=== PATIENT | female | born 1980 | race American Indian/Alaskan Native ===

== ENCOUNTER 2017-02-15 08:20 | Inpatient (IN) | payer OTHER ==
[2017-02-15] MEDS ORDERED: MINERAL OIL PO PRN ×2 (09:50→10:30)
[2017-02-15] MEDS ORDERED: ePHEDrine SULFATE IV PRN ×2 (09:50→11:00)
[2017-02-15] MEDS ORDERED: BRETHINE SUB-Q PRN ×2 (09:50→11:00)
[2017-02-15] MEDS ORDERED: BRETHINE IVP PRN ×2 (09:50→11:00)
[2017-02-15] MEDS ORDERED: LACTATED RINGERS 1,000 ML IV SCH ×2 (10:00→10:30)
[2017-02-15 10:14] LABS: Hematocrit 35.4 % (30.3-42.9); Hemoglobin 11.7 gm/dl (10.1-14.3); Mean Corpuscular HGB Conc 33 % (30-34); Mean Corpuscular Volume 76 fl (79-97); Red Blood Count 4.63 M/mm3 (3.65-5.03); White Blood Count 9.2 K/mm3 (4.5-11.0)
[2017-02-15 10:16] LABS: Mean Corpuscular Hemoglobin 25 pg (28-32)
[2017-02-15] MEDS ORDERED: STADOL IV PRN (10:30)
[2017-02-15] MEDS ORDERED: POLYCILLIN/NS 2 GM/100 ML 2 GM/100 ML BAG IV ONE (10:30)
[2017-02-15] MEDS ORDERED: SUBLIMAZE IV PRN (10:30)
[2017-02-15] MEDS ORDERED: PITOCin/NS 20 UNIT/1000ML DRIP 20 UNITS/1,000 ML BAG IV SCH (10:30)
[2017-02-15] MEDS ORDERED: PITOCin/NS 30 UNIT/500ML 30 UNITS/500 ML BAG IV SCH (10:30)
--- NOTE | 2017-02-15 10:32 | History and Physical Report ---
History of Present Illness Date of examination: 02/15/17 Date of admission: 02/15/17 09:28 Chief complaint: I'm in labor History of present illness: Patient is a 36 year old who presents with no care at approximately 39 weeks. She was given an EDC of 02/27/17 at [facility]. Past History Past Medical History: no pertinent history Social history: - Obstetrical History Expected Date of Delivery: 02/27/17 Actual Gestation: 38 Week(s) 2 Day(s) : 5 Para: 4 Number of Living Children: 4 Medications and Allergies Allergies Allergy/AdvReac Type Severity Reaction Status Date / Time No Known Allergies Allergy Verified 02/15/17 10:13 Home Medications Medication Instructions Recorded Confirmed Last Taken Type No Known Home Medications [No 02/15/17 02/15/17 Unknown History Reported Home Medications] Active Meds: Active Medications Butorphanol Tartrate (Stadol) 2 mg IV Q2H PRN PRN Reason: Pain , Severe (7-10) Ephedrine Sulfate (Ephedrine Sulfate) 10 mg IV Q2M PRN PRN Reason: Hypotension Stop: 02/16/17 10:59 Fentanyl (Sublimaze) 100 mcg IV Q2H PRN PRN Reason: Labor Pain Ampicillin Sodium (Polycillin/Ns 2 Gm/100 Ml) 2 gm in 100 mls @ 100 mls/hr IV ONCE ONE PRN Reason: Protocol Stop: 02/15/17 11:29 Lactated Ringer's (Lactated Ringers) 1,000 mls @ 125 mls/hr IV DIRECT LAUREEN Oxytocin/Sodium Chloride (Pitocin/Ns 20 Unit/1000ml Drip) 20 units in 1,000 mls @ 125 mls/hr IV DIRECT LAUREEN Ampicillin Sodium (Polycillin/Ns 1 Gm/50 Ml) 1 gm in 50 mls @ 100 mls/hr IV Q4H LAUREEN PRN Reason: Protocol Oxytocin/Sodium Chloride (Pitocin/Ns 30 Unit/500ml) 30 units in 500 mls @ 1 mls /hr IV TITR LAUREEN; 1 MILLIUNITS/MIN PRN Reason: Protocol Influenza Virus Vaccine Quadrival (Fluarix Quad [id number](36 Mos+)) 60 mcg IM .ONCE ONE Stop: 02/16/17 12:01 Lidocaine (Xylocaine 2%) 20 ml INFILTRATI ONCE ONE Stop: 02/15/17 11:01 Mineral Oil (Mineral Oil) 30 ml PO QHS PRN PRN Reason: Constipation Terbutaline Sulfate (Brethine) 0.25 mg SUB-Q ONCE PRN PRN Reason: Hyperstimulation/Hypertonicity Stop: 02/15/17 11:01 Terbutaline Sulfate (Brethine) 0.25 mg IVP ONCE PRN PRN Reason: Hyperstimulation/Hypertonicity Stop: 02/15/17 11:01 Review of Systems All systems: negative Genitourinary: leakage of fluid, contractions - Vital Signs Vital signs: Vital Signs Temp Resp 98.5 F 02/15/17 10:03 02/15/17 10:03 Temp Pulse Resp BP Pulse Ox 98.5 F 02/15/17 10:03 02/15/17 10:03 - Physical Exam Breasts: Cardiovascular: Regular rate, Normal S1, Normal S2 Lungs: Positive: Clear to auscultation, Normal air movement Abdomen: Positive: normal appearance, soft, normal bowel sounds. Negative: distention, tenderness Genitourinary (Female): Positive: normal external genitalia, normal perenium Vulva: both: normal Vagina: Positive: normal moisture. Negative: discharge Cervix: Negative: lesion, discharge Uterus: Positive: normal size, normal contour Adnexa: both: normal Anus/Rectum: Positive: normal perianal skin, heme negative. Negative: rectal mass, hemorrhoids Extremities: Positive: normal Deep Tendon Reflex Grade: Normal +2 - Obstetrical FHR: auscultation normal Cervical Dilatation: 5 Cervical Effacement Percentage: 80 Uterine Contraction Pattern: Regular Uterine Tone Measurement Phase: Contraction Uterine Contraction Intensity: Moderate Results Result Diagrams: 02/15/17 09:42 Abnormal lab results 02/15/17 Range/Units 09:42 MCV 76 L (79-97) fl MCH 25 L (28-32) pg All other labs normal. Assessment and Plan IUP at 39 weeks with no care in active labor. Admit to L&D. Monitor progress. Administer Ampicillin for GBS unknown status. Anticipate . Will draw full labs as patient has had no care.
[2017-02-15] MEDS ORDERED: XYLOCAINE 2% INFILTRATI ONE (11:00)
[2017-02-15 11:30] LABS: HIV-1 Antigen p24 Non React (Non React); HIVR-1/2 Ab Non React (Non React)
[2017-02-15 11:51] LABS: Platelet Count 117 K/mm3 (140-440)
--- NOTE | 2017-02-15 13:15 | Procedure Note ---
OB Delivery Note - Delivery Date of Delivery: 02/15/17 Surgeon: CHANTE CENTENO Estimated blood loss: 100cc - Vaginal Delivery presentation: vertex Delivery position: OA Intrapartum events: no care Delivery induction: none Delivery monitor: external FHT, external uterine Route of delivery: Delivery placenta: spontaneous Delivery cord: 3 umbilical vessels Episiotomy: none Delivery laceration: none Anesthesia: local Delivery comments: Viable male delivered over intact perineum. Nuchal cord easily reduced. Infant placed on maternal abdomen. Cord clamped and cut. - Infant A at 1 minute: 8 at 5 minutes: 9 Gender: Male (4520 grams 9 pounds 15 ounces)
[2017-02-15] MEDS ORDERED: POLYCILLIN/NS 1 GM/50 ML 1 GM/50 ML BAG IV SCH (14:00)
[2017-02-15] MEDS ORDERED: PHENERGAN PR PRN (14:25)
[2017-02-15] MEDS ORDERED: ZOFRAN IV PRN (14:25)
[2017-02-15] MEDS ORDERED: SODIUM CHLORIDE FLUSH SYRINGE 10 ML IV NR (14:25)
[2017-02-15] MEDS ORDERED: LANSINOH TP PRN (14:25)
[2017-02-15] MEDS ORDERED: BENADRYL PO PRN (14:25)
[2017-02-15] MEDS ORDERED: DULCOLAX PR PRN (14:25)
[2017-02-15] MEDS ORDERED: TYLENOL PO PRN (14:25)
[2017-02-15] MEDS ORDERED: TUCKS PAD TP PRN (14:25)
[2017-02-15] MEDS ORDERED: MILK OF MAGNESIA PO PRN (14:25)
[2017-02-15] MEDS ORDERED: DERMOPLAST TP PRN (14:25)
[2017-02-15] MEDS ORDERED: PHENERGAN PO PRN (14:25)
[2017-02-15] MEDS: MOTRIN PO SCH (18:17)
[2017-02-15] MEDS: COLACE PO SCH (21:35)
[2017-02-16 03:42] LABS: Hematocrit 37.7 % (30.3-42.9); Hemoglobin 11.1 gm/dl (10.1-14.3)
[2017-02-16] MEDS: NORCO 5/325 PO PRN ×2 (04:13→20:11)
[2017-02-16] MEDS ORDERED: BOOSTRIX IM ONE (06:00)
[2017-02-16] MEDS ORDERED: PRENATAL VITAMIN PO SCH (10:00)
[2017-02-16] MEDS ORDERED: FLUARIX QUAD 2016-2017(36 MOS+) IM ONE (12:00)
[2017-02-16] MEDS: MOTRIN PO SCH ×2 (12:10→18:29)
--- NOTE | 2017-02-16 17:34 | Progress Note ---
Assessment and Plan PPD 1 s/p . Doing well. Baby will need to stay until tomorrow due to unknown gbs status. Subjective - Subjective Date of service: 02/16/17 Interval history: Patient is a 36 year old who presents with no care at approximately 39 weeks. She was given an EDC of 02/27/17 at [facility], [place]. Patient reports: appetite normal, voiding normally, ambulating normally : doing well Objective - Vital Signs Latest vital signs: Vital Signs Temp Pulse Resp BP 02/16/17 08:30 98 F 68 18 98/60 02/16/17 04:13 18 02/16/17 00:19 98.1 F 67 18 99/52 02/15/17 21:00 99 F 67 20 97/59 Intake and Output 02/16/17 02/16/17 02/16/17 06:59 14:59 22:59 Intake Total 120 600 Balance 120 600 Intake: Oral 600 Intake, Free Water 120 Other: Total, Intake Amount 240 # Voids Void 1 1 - Exam Cardiovascular: Present: Regular rate, Normal S1, Normal S2 Lungs: Present: Clear to auscultation, Normal air movement Abdomen: Present: normal appearance, soft, normal bowel sounds Vulva: both: normal Uterus: Present: normal, firm, fundal height below umbilicus Extremities: Present: normal
[2017-02-17] MEDS: MOTRIN PO SCH ×4 (00:48→18:15)
[2017-02-17] MEDS: COLACE PO SCH (04:28)
[2017-02-17] MEDS ORDERED: BOOSTRIX IM ONE (06:00)
--- NOTE | 2017-02-17 13:01 | Progress Note ---
Assessment and Plan PPD 2 s/p . Doing well. Plan for discharge on today. Subjective - Subjective Date of service: 02/17/17 Interval history: Patient is a 36 year old who presents with no care at approximately 39 weeks. She was given an EDC of 02/27/17 at [facility]. Patient reports: appetite normal, voiding normally, pain well controlled, ambulating normally : doing well Objective - Vital Signs Latest vital signs: Vital Signs Temp Pulse Resp BP 02/17/17 08:40 98.2 F 68 20 110/62 02/16/17 23:25 97.9 F 59 L 18 100/56 Intake and Output 02/16/17 02/17/17 02/17/17 22:59 06:59 14:59 Intake Total 720 240 240 Balance 720 240 240 Intake: Oral 240 Intake, Free Water 720 240 Other: Total, Intake Amount 120 # Voids Void 2 1 1 # Bowel Movements 1 - Exam Breasts: Present: deferred Cardiovascular: Present: Regular rate, Normal S1, Normal S2 Lungs: Present: Clear to auscultation, Normal air movement Abdomen: Present: normal appearance, soft, normal bowel sounds Uterus: Present: normal, firm Extremities: Present: normal
--- NOTE | 2017-02-17 13:05 | Discharge Summary ---
Providers - Providers Date of Admission: 02/15/17 09:28 Date of discharge: 02/17/17 Attending physician: CHANTE CENTENO Primary care physician: MANAGER [facility] Hospitalization Reason for admission: active labor, other (no care) Delivery: Episiotomy: none Laceration: none complications: none Discharge diagnosis: IUP at term delivered baby: male Hospital course: unremarkable Condition at discharge: Good Disposition: DISCHARGED TO HOME OR SELFCARE Plan - Discharge Medications Prescriptions: Ibuprofen [Motrin 600 MG tab] 600 mg PO Q6HR #30 tablet Vit-Fe Fumar-FA [ Vitamin] 1 each PO QDAY #60 tablet - Provider Discharge Summary Activity: routine, no sex for 6 weeks, no heavy lifting 4 weeks, no strenuous exercise Diet: routine Instructions: routine Additional instructions: [] Smoking cessation referral if applicable(refer to patient education folder for contact #) [] Refer to [facility]'s [facility] Booklet Call your doctor immediately for: * Fever > 100.5 * Heavy vaginal bleeding ( >1 pad per hour) * Severe persistent headache * Shortness of breath * Reddened, hot, painful area to leg or breast * Drainage or odor from incision. * Keep incision clean and dry at all times and follow doctor's instructions regarding bathing/showering - Follow up plan Follow up: CHANTE CENTENO MD [Staff Physician] - 6 Weeks
[2017-02-17] MEDS ORDERED: FLUARIX QUAD 2016-2017(36 MOS+) IM ONE (15:00)
[2017-02-17 17:18] VITALS: BP 92/60
== END 2017-02-17 18:50 | disposition home or self-care (01) | DRG 775 ==
LOC: TRG 08:20 → LD 09:28 → OB 14:22
PROVIDERS: ADMIT Obstetrics & Gynecology; ATTEND Obstetrics & Gynecology
PROC: 10E0XZZ Delivery of Products of Conception, External Approach (ICD-10-PCS; principal; 2017-02-15)
PROC: 00HU33Z Insertion of Infusion Device into Spinal Canal, Percutaneous Approach (ICD-10-PCS; 2017-02-15)
PROC: 3E0R3BZ Introduction of Anesthetic Agent into Spinal Canal, Percutaneous Approach (ICD-10-PCS; 2017-02-15)
DX: O69.81X0 Labor and delivery complicated by cord around neck, without compression, not applicable or unspecified (principal); Z3A.38 38 weeks gestation of pregnancy; Z37.0 Single live birth
CPT/HCPCS: 36415; 85014; 85018; 85027; 86592; 86706; 86762; 86850; 86900; 86901; 87806; 88307; 90471; 90686; 90715; 99211; G0008; G0463; J0290; J0595; J2590; J3010; J7120